=== PATIENT | male | born 1990 | race Asian ===

== ENCOUNTER 2021-05-31 08:40 | Outpatient (CLI) | payer BC | END 2021-05-31 08:41 | disposition home or self-care (01) | LOC: LABHHL 08:40 | PROVIDERS: ATTEND Otolaryngology Otology & Neurotology | DX: J32.0 Chronic maxillary sinusitis (principal); J32.2 Chronic ethmoidal sinusitis; J34.2 Deviated nasal septum | CPT/HCPCS: 88305; 88311 ==